=== PATIENT | female | born 1990 | race Caucasian/White ===

== ENCOUNTER 2024-02-13 21:55 | Emergency (ER) | payer MEDICAID ==
[~2024-02-13] VITALS: Ht 167.6 cm; Wt 72.6 kg
[2024-02-14] MEDS ORDERED: ACETAMINOPHEN ES 500 MG TABLET ONE (00:10)
[2024-02-14] MEDS: ACETAMINOPHEN ES 500 MG TABLET PO ONE (00:25)
[2024-02-14 03:18] VITALS: BP 134/81; TEMP 98; O2SAT 99
== END 2024-02-14 03:18 | disposition home or self-care (01) ==
LOC: ER 22:03
DX: S00.12XA Contusion of left eyelid and periocular area, initial encounter (principal); Y04.0XXA Assault by unarmed brawl or fight, initial encounter; Y93.89 Activity, other specified; Y92.89 Other specified places as the place of occurrence of the external cause; Y99.8 Other external cause status
CPT/HCPCS: 70450-TC; 70486-TC